=== PATIENT | female | born 1975 | race Native Hawaiian/Other Pacific Islander ===

== ENCOUNTER 2017-01-26 14:55 | Outpatient (CLI) | payer OTHER ==
[~2017-01-26 14:55] MED LIST: AMOX500C85 PO; LORA10TA3 PO; PRED20TA27 PO
== END 2017-01-26 16:00 | disposition home or self-care (01) ==
LOC: MAMMO 14:55
DX: Z12.31 Encounter for screening mammogram for malignant neoplasm of breast (principal)

== ENCOUNTER 2019-04-10 14:15 | Outpatient (CLI) | payer OTHER | END 2019-04-10 20:47 | disposition home or self-care (01) | LOC: MAMMO 14:15 | DX: Z12.31 Encounter for screening mammogram for malignant neoplasm of breast (principal) ==

== ENCOUNTER 2021-07-25 15:05 | Outpatient (CLI) | payer OTHER | END 2021-07-25 19:40 | disposition home or self-care (01) | LOC: MAMMO 15:05 | PROVIDERS: ATTEND Internal Medicine | DX: Z12.31 Encounter for screening mammogram for malignant neoplasm of breast (principal) ==

== ENCOUNTER 2021-08-07 14:57 | Outpatient (CLI) | payer OTHER | END 2021-08-07 20:20 | disposition home or self-care (01) | LOC: US 14:57 | PROVIDERS: ATTEND Internal Medicine | DX: R92.8 Other abnormal and inconclusive findings on diagnostic imaging of breast (principal) ==

== ENCOUNTER 2022-03-02 15:02 | Outpatient (CLI) | payer OTHER | END 2022-03-02 19:01 | disposition home or self-care (01) | LOC: US 15:02 | PROVIDERS: ATTEND Internal Medicine | DX: R92.8 Other abnormal and inconclusive findings on diagnostic imaging of breast (principal) ==